=== PATIENT | male | born 1995 | race Caucasian/White ===

== ENCOUNTER 2017-04-22 07:01 | Emergency (ER) | payer SELFPAY ==
[~2017-04-22] VITALS: Ht 177.8 cm; Wt 64.6 kg
[2017-04-22 07:03] VITALS: BP 129/76
[2017-04-22] MEDS ORDERED: KETOROLAC 30 MG/1 ML ONE (08:51)
[2017-04-22] MEDS ORDERED: KETOROLAC 30 MG/1 ML IM ONE (09:00)
== END 2017-04-22 09:37 | disposition home or self-care (01) ==
LOC: ED 09:02
DX: G89.29 Other chronic pain (principal); M25.511 Pain in right shoulder
CPT/HCPCS: 73030; 96372; 99284; J1885

== ENCOUNTER 2018-05-16 19:14 | Emergency (ER) | payer BC ==
[~2018-05-16] VITALS: Ht 180.3 cm; Wt 68.6 kg
[2018-05-16 19:17] VITALS: BP 127/75
== END 2018-05-16 20:17 | disposition home or self-care (01) ==
LOC: ED 19:40
DX: M25.562 Pain in left knee (principal)
CPT/HCPCS: 99284

== ENCOUNTER 2018-05-17 11:11 | Emergency (ER) | payer BC ==
[~2018-05-17] VITALS: Ht 180.3 cm; Wt 68.0 kg
[2018-05-17 11:16] VITALS: BP 133/91
== END 2018-05-17 12:02 | disposition home or self-care (01) ==
LOC: ED 11:48
DX: M25.562 Pain in left knee (principal)
CPT/HCPCS: 99281